=== PATIENT | female | born 1995 | race Caucasian/White ===

== ENCOUNTER 2022-04-09 09:20 | Inpatient (IN) | payer BC, SELFPAY ==
--- NOTE | 2022-04-05 11:19 | HP.PCM_ITS ---
History and Physical Date of Admission: 04/09/22 Pre-Op History and Physical ? HPI: The patient is a 26 year old female presenting for pre-operative visit. She is scheduled for , for BREECH 39+ weeks on 04/09/22. Procedure discussed along with risks, benefits and complications. Other alternatives discussed for management. Consent form signed? Yes. ? ? PAST MEDICAL HISTORY PAST MEDICAL HISTORY Diagnosis Date ? Headache(784.0) 01/25 ? ED headache and vomiting: CT head negative ? Pneumonia, organism unspecified(486) 03/01 ? hospitalized [facility] bilateral infiltrates ? Unspecified asthma, with status asthmaticus ? ? ? PAST SURGICAL HISTORY PAST SURGICAL HISTORY Procedure Laterality Date ? MYRINGOTOMY ASPIR&/EUSTACHIAN TUBE NFLTJ ANES ? ? Myringotomy/tubes ? ? ? CURRENT MEDICATIONS Current Outpatient Medications Medication Sig Dispense Refill ? multivitamin (CLASSIC ) 28 mg iron- 800 mcg tab(s) Take 1 tablet by mouth once daily. ? ? ? albuterol HFA (PROAIR HFA) 90 mcg/actuation inhaler Inhale 2 Puffs as instructed every 4 hours as needed for Wheezing/Shortness of Breath. 3 Inhaler 3 ? No current facility-administered medications for this visit. ? ? ALLERGIES: Ceclor [Cefaclor]; Penicillin G; and Trees, Dust, Mold, Grass, [Other] ? PERSONAL HISTORY: SOCIAL HISTORY Social History ? Tobacco Use ? Smoking status: Never ? Smokeless tobacco: Never Vaping Use ? Vaping Use: Never used Substance Use Topics ? Alcohol use: Not Currently ? ? Comment: Socially ? Drug use: No ? FAMILY HISTORY: FAMILY HISTORY FAMILY HISTORY Problem Relation Age of Onset ? No Known Problems Mother ? ? Hypertension Father ? ? No Known Problems Sister ? ? No Known Problems Brother ? ? No Known Problems Maternal Grandmother ? ? No Known Problems Maternal Grandfather ? ? No Known Problems Paternal Grandmother ? ? Kidney failure Paternal Grandfather ? ? ? REVIEW OF SYMPTOMS: Negative PHYSICAL EXAMINATION: ? VITALS: Blood pressure 116/74, weight 252 lb (114.3 kg), last menstrual period 07/06/2021. ? GENERAL: The patient is well nourished, well hydrated in no acute distress. , The patient is oriented to time, place, and person. NECK: full range of motion ABD: gravid, non tender ? ? IMPRESSION: @ 39+ weeks, BREECH ? PLAN: Primary cs for Breech presentation ? Will attempt ECV prior to C/S if not vertex spontaneously ? Pt has been counseled on risks/benefits and alternatives of surgery including but not limited to anesthesia, bleeding, infection, injury to pelvic structures including bowel, bladder, ureters and vessels. Pt wishes to proceed with surgery at this time. Pt will accept blood products if indicated. ? Pre OP instructions reviewed Covid testing ordered ? I have reviewed and updated past medical and surgical history, medications and allergies Mercedes Dang MD Routine Office Visit on 04/05/2022 Routine Office Visit on 04/05/2022 Note shared with patient
[2022-04-09] VITALS (19 sets, daily range): BP systolic 95–127; BP diastolic 45–93; PULSE 53–74; RESP 15–16; TEMP 35.7–36.6; O2SAT 93–100; BMI 31.6
[2022-04-09] MEDS: Lactated Ringers 1,000 ML 150 ML IV (10:12)
[2022-04-09 10:31] LABS: Absolute Lymphocyte Count 2.61 X10^3/uL (0.83-4.51); Absolute Neutrophil Count 6.6 X10^3/uL (2.0-7.7); Basophil# 0.03 X10^3/uL; Basophil% 0.3 % (0-1); Eosinophil# 0.07 X10^3/uL; Eosinophils% 0.7 % (0-5); Hematocrit 30.3 % (37-47); Hemoglobin 10.3 g/dL (12.0-15.0); Lymphocyte # 2.61 X10^3/ul (0.83-4.51); Lymphocyte % 26.2 % (19-41); Mean Corpuscular Hgb 29.9 pg (27.0-32.0); Mean Corpuscular Volume 87.8 fL (81-99); Monocyte# 0.59 X10^3/uL; Monocyte% 5.9 % (0-10); NRBC Flagged by Analyzer 0 % (0-5); Neutrophil # 6.63 X10^3/uL (2.7-7.7); Neutrophil % 66.4 % (47-70); Platelet Count 163 K/mm3 (150-450); RBC Distribution Width CV 13.3 % (11.6-14.6); RBC Distribution Width SD 42.1 fl (35.1-43.9); Red Blood Count 3.45 M/mm3 (4.2-5.4)
[2022-04-09] MEDS: Acetaminophen 500 MG Tablet 1000 MG PO ×3 (10:49→23:21)
[2022-04-09] MEDS: Sodium Citrate/Citric Acid 30 ML UDC PO (11:46)
[2022-04-09] MEDS: Lactated Ringers 1,000 ML 999 ML IV (11:47)
[2022-04-09] MEDS: Cefazolin 2 GM in 0.9% Normal Saline 100 ML IV (11:51)
--- NOTE | 2022-04-09 12:43 | OP.PCM_ITS ---
Details Operative Information Date of Procedure: 04/09/22 Pre-Operative Diagnosis: 39 weeks, Breech, failed ECV Post-Operative Diagnosis: same, live male infant Indications for : Breech Classification: Scheduled Procedure Type: low transverse occupational medicine specialist #1: Richa Cosby Type of Anesthesia: Spinal Antibiotic Given: Ancef 2 grams IV x1 Drain: Merida to straight drain Estimated Blood Loss: 600 Fluids Replaced: 1000 Procedure Start Time: 12:12 Procedure Stop Time: 12:47 Time of Delivery: 12:18 Findings Description of Procedure: After informed consent was obtained the patient was taken the operating room she was given spinal anesthesia. She was then placed in the supine position. She was prepped and draped in the normal sterile fashion. Anesthesia was found to be adequate. At this time a Pfannenstiel skin incision was made with a knife was carried down to the underlying layer of the fascia. The fascial incision was then extended laterally using curved Hernandez scissor. Attention was then turned to the superior aspect of the fascial edge was grasped with 2 straight Sharda clamps tented up and the rectus muscle dissected off sharply using curved Hernandez scissor. Attention was then turned to the inferior aspect where again [place] clamps were placed in the rectus muscles were tented up and the fascia was dissected off sharply using the curved Hernandez scissor. Rectus muscles were then in the midline bluntly and peritoneum was entered bluntly. Gentle opposing traction was placed. At this time the vesicouterine peritoneum was identified. Scalpel was used to make a uterine incision in a low transverse fashion. The uterus was then entered bluntly gentle opposing traction was placed to extend this incision. Membranes were ruptured clear. Single Footling breech noted. Leg pushed back up and buttocks then delivered followed by the rest of the infants body without complication. delayed cord clamping performed. Nose and mouth were suctioned. Cord was clamped and cut infant was handed to the waiting nursery team. The Placenta was removed from the uterus. The uterus was then removed from the abdominal cavity. The uterus was cleared of all clots and debris using a lap. At this time the uterine incision was reapproximated using #1 Vicryl in a running locked fashion followed by a second layer of multiple figure of eight sutures placed. Hemostasis was appreciated. Posterior cul-de-sac was then cleared of all clots and debris. Uterus was placed back in the abdominal cavity. Gutters were cleared of all clots and debris. Uterine incision was reevaluated and noted to be of excellent hemostasis. Yasmine placed. At this time the peritoneum was grasped with Kellys reapproximated using #2 Vicryl suture in a running fashion. Fascia was then reapproximated using #1 Vicryl in a running fashion. Subcu layer was reapproximated with #2 0 plain gut suture in an interrupted fashion. Subcu layer was closed using 4-0 Monocryl in a subcu fashion. Dry sterile dressing was applied. Instrument lap needle count correct ?2. Anticipated normal postoperative course. Presentation: Positive for Footling Breech (single ) Amniotic Membrane Rupture Type: Artificial Amniotic Fluid Description: Clear Placental Delivery Description: Spontaneous Placenta Disposition: [facility] Cord Vessel Description: 3 Vessels Cord Entanglement: None Cord Gases: ABG and VBG Infant A Gender: Male (1 minute): 8 (5 minute): 9 Delayed Cord Clamping: Yes Complications Risks of Surgery Discussed w/Patient: Bleeding, Anesthesia Risks, Infection and Injury to surrounding structure(s) including bowel and bladder
[2022-04-09] MEDS: Oxytocin 30 units/NS 500 ml 30 UNITS/500 ML IV.SOLN 167 UNITS IV (13:00)
[2022-04-09] MEDS: Ketorolac 30 MG/ML Syringe IV ×2 (13:26→19:18)
--- NOTE | 2022-04-09 14:08 | PCM.PN.BLA ---
Progress Note attempted ECV prior to cs. Pt had reactive category 1 tracing- head in maternal Left- gel applied to maternal abdomen. RACHELL appears wnl. abdomen soft. Gentle pressure downward on head and up on buttocks attempted three times- with minimal movement. one attempt at back roll as well but unsuccessful. FHR was see on ultrasound during attempted ECV. once unsuccessful we proceeded with planned primary cs.
--- NOTE | 2022-04-09 15:54 | NURSING ---
student charting reviewed by Alanna CHAVIRA instructor
[2022-04-09] MEDS: Lactated Ringers 1,000 ML 100 ML IV (16:12)
[2022-04-09] MEDS: Ondansetron 4 MG/2 ML Vial IV (16:12)
[2022-04-10 01:19] VITALS: BP 101/53; PULSE 62; RESP 15; TEMP 36.3
[2022-04-10] MEDS: Ketorolac 30 MG/ML Syringe IV ×2 (01:22→07:22)
[2022-04-10] MEDS: 0.9% Saline Lock 10 ML Syringe IV ×2 (01:22→07:23)
[2022-04-10 05:23] VITALS: BP 117/61; PULSE 74; RESP 18; TEMP 36.6; O2SAT 97
[2022-04-10] MEDS: Acetaminophen 500 MG Tablet 1000 MG PO ×4 (05:26→23:27)
--- NOTE | 2022-04-10 05:33 | NURSING ---
All charting done by Andrews, RN reviewed by Abby RN
[2022-04-10 05:49] LABS: Hematocrit 25.3 % (37-47); Hemoglobin 8.1 g/dL (12.0-15.0); Mean Corpuscular Hgb 28.4 pg (27.0-32.0); Mean Corpuscular Volume 88.8 fL (81-99); Mean Platelet Vol. 10.7 fl (6.2-12.0); Platelet Count 122 K/mm3 (150-450); RBC Distribution Width CV 13.6 % (11.6-14.6); RBC Distribution Width SD 44.1 fl (35.1-43.9); Red Blood Count 2.85 M/mm3 (4.2-5.4); White Blood Count 9.3 K/mm3 (4.4-11.0)
[2022-04-10 07:44] VITALS: BP 117/68; PULSE 80; RESP 16; TEMP 37.1; O2SAT 97
--- NOTE | 2022-04-10 08:28 | PN.OBGYN_ITS ---
Subjective Subjective Patient seen at bedside. Pain controlled. Ambulating and voiding without difficulty. with support. Lochia is minimal. Denies any headache, dizziness, SOB or CP. Anticipate discharge home tomorrow. Objective Data Objective Data Vital Signs: Vital Signs Temp Pulse Resp BP Pulse Ox O2 Del Method 97.9 F 74 18 117/61 97 Room Air 04/10/22 05:23 04/10/22 05:23 04/10/22 05:23 04/10/22 05:23 04/10/22 05:23 04/10/22 05:23 Oxygen Delivery Method Room Air Weight: 253 lb 8.505 oz Body Mass Index (BMI) 31.6 Intake & Output: Intake and Output for Last 24 Hours 04/08/22 04/09/22 04/10/22 23:59 23:59 23:59 Intake Total 2809 / 2809 Output Total 700 / 700 1700 / 1700 Balance 2109 / 2109 -1700 / -1700 Lab / Micro Data Result Diagrams: 04/10/22 05:40 Labs: Laboratory Results - last 24 hr 04/09/22 10:10: WBC 10.0, RBC 3.45 L, Hgb 10.3 L, Hct 30.3 L, MCV 87.8, MCH 29.9, MCHC 34.0, RDW Std Deviation 42.1, RDW Coeff of Luis 13.3, Plt Count 163, MPV 12.0, Immature Gran % (Auto) 0.500, Neut % (Auto) 66.4, Lymph % (Auto) 26.2, Prowers % (Auto) 5.9, Eos % (Auto) 0.7, Baso % (Auto) 0.3, Absolute Neuts (auto) 6.6, Absolute Lymphs (auto) 2.61, Nucleated RBC % 0 04/09/22 10:10: Blood Type AB NEGATIVE, Antibody Screen NEGATIVE 04/09/22 14:58: Screen NEGATIVE, Baby's Blood Type A POSITIVE, Baby's JEREMY NEGATIVE 04/10/22 05:40: WBC 9.3, RBC 2.85 L, Hgb 8.1 L, Hct 25.3 L, MCV 88.8, MCH 28.4, MCHC 32.0 D, RDW Std Deviation 44.1 H, RDW Coeff of Luis 13.6, Plt Count 122 L, MPV 10.7 Micro: Microbiology 04/09/22 10:10 Nasal Secretion SARS-CoV-2 Antigen (Rapid) - Final ROS Eyes Eyes: Denies blurry vision, change in vision or spots in vision ENT HEENT: Denies dizziness or headache(s) Cardiovascular Cardiovascular: Denies abdominal pain, chest pain or dyspnea Respiratory/Chest Respiratory/Chest: Denies cough, dyspnea, shortness of breath at rest or short ness of breath with exertion Gastrointestinal Gastrointestinal: Denies abdominal pain, diarrhea or vomiting Genitourinary Genitourinary: Denies change in urinary stream, difficulty urinating or dysuria Musculoskeletal Musculoskeletal: Reports none Integumentary Integumentary: Denies rash Neurologic Neurologic: Denies dizziness, headache(s), memory loss or weakness Physical Exam Narrative Dressing is dry and intact Const alert and no apparent distress General Appearance: cooperative and comfortable Exam Limitations: no limitations HEENT normocephalic Eyes General Eye: normal appearance of both eyes Neck full ROM General: normal visual inspection Chest Chest: symmetrical chest wall rise Resp normal respiratory effort and normal air movement Effort and Inspection: symmetric chest movement Auscultation: clear to auscultation bilaterally Cardio regular rate and regular rhythm GI normal to inspection, nondistended, normoactive bowel sounds Back/Spine normal ROM Extremity full ROM and no calf tenderness General Extremity: normal exam except as noted Skin no rashes or lesions noted Neuro CN's II-XII intact bilaterally Psych mental status grossly normal Assessment & Plan (1) Status post primary low transverse section: (2) Care and examination of lactating mother: PLAN: Plan PO Day 1 Primary C/S breech Routine care Pain control support Increase ambulation Anticipate discharge home tomorrow
[2022-04-10] MEDS: Senna/Docusate Sodium 1 Tablet PO (09:55)
[2022-04-10 11:39] VITALS: BP 124/73; PULSE 79; RESP 16; TEMP 37.1; O2SAT 97
[2022-04-10] MEDS: Ibuprofen 600 MG Tablet PO ×2 (13:27→19:24)
[2022-04-10 16:29] VITALS: BP 121/68; PULSE 82; RESP 18; TEMP 36.7; O2SAT 94
[2022-04-10 20:38] VITALS: BP 124/76; PULSE 81; RESP 17; TEMP 36.6; O2SAT 97
[2022-04-11] MEDS: Ibuprofen 600 MG Tablet PO ×4 (01:20→19:04)
[2022-04-11 02:00] VITALS: BP 119/69; PULSE 75; RESP 16; TEMP 37.1; O2SAT 98
[2022-04-11] MEDS: Acetaminophen 500 MG Tablet 1000 MG PO ×4 (05:14→23:14)
--- NOTE | 2022-04-11 06:40 | PCM.DC.SUM ---
Providers Date of Admission: 04/09/22 Reason For Visit: PRIMARY C SECTION Diagnosis Discharge Diagnosis (1) Status post primary low transverse section: Status: Acute Code(s): Z98.891 - History of uterine scar from previous surgery (2) Care and examination of lactating mother: Status: Acute Code(s): Z39.1 - Encounter for care and examination of lactating mother Plan PO Day 2 Primary C/S Pain control support D/C home with follow up in office in 1 week Medications at Discharge Home Medications [id number] 1 mg tablet tab PO 04/09/22 Hospital Course Operations section Summary of Care Provided Hospital Course: Patient for a primary section. Hospital course was uneventful. Physical Exam Narrative Patient seen at bedside. Starting to supplement with formula due to infant having difficulty latching. She will be seen by today. Pain controlled. Ambulating and voiding. Passing flatus. Desires discharge home later tonight if feedings improve. Dressing is dry and intact Const alert and no apparent distress General Appearance: cooperative and comfortable Exam Limitations: no limitations HEENT normocephalic Eyes General Eye: normal appearance of both eyes Neck full ROM General: normal visual inspection Chest Chest: symmetrical chest wall rise Resp normal respiratory effort and normal air movement Effort and Inspection: symmetric chest movement Auscultation: clear to auscultation bilaterally Cardio regular rate and regular rhythm GI normal to inspection, nondistended, normoactive bowel sounds Back/Spine normal ROM Extremity full ROM and no calf tenderness General Extremity: normal exam except as noted Skin no rashes or lesions noted Neuro CN's II-XII intact bilaterally Psych mental status grossly normal Weight / BMI Weight Weight: 253 lb 8.505 oz Body Mass Index (BMI) 31.6 ABG / Lab / Microbiology Data Result Diagrams: 04/10/22 05:40 Microbiology: Microbiology 04/09/22 10:10 Nasal Secretion SARS-CoV-2 Antigen (Rapid) - Final D/C Instructions Discharge Diet: No restrictions Discharge Activity: May Shower May resume sexual activity in: 6-8 weeks Weight Bearing Status: Weight bearing as tolerated Call your doctor if your incision/area has: Continuous Slow Oozing, Sudden Increased Bleeding, Increased Pain/ Swelling and Foul Smelling Discharge Call your doctor if you observe: Fever of 101 or Higher, Inability to urinate, Inability to have a bowel movement, Using more than 1 pad per hour, Shortness of breath, Dizziness, Chest pain, Calf discomfort and Uncontrolled pain Change Dressing in: leave in place till F/U Please Follow Up With: Mercedes Awad MD When: 1 week for incision check Meaningful Use Info Meaningful Use Diagnoses (Choose all that apply): None applicable Discharge Plan Admission Admit Date/Time: 04/09/22 09:20 Primary Reason for Your Visit: Primary Section Attending Provider: Mercedes Awad Discharge Orders/Prescriptions Prescriptions: No Action 1 mg Tablet PO Disposition Disposition (needs filled in before D/C Order can be placed): Home, Self Care
[2022-04-11 08:46] VITALS: BP 109/82; PULSE 68; RESP 16; TEMP 36.6
[2022-04-11] MEDS: Senna/Docusate Sodium 1 Tablet PO (10:49)
[2022-04-11 13:08] VITALS: BP 121/68; PULSE 83; RESP 16; TEMP 36.8
[2022-04-11 19:51] VITALS: BP 143/85; PULSE 71; RESP 16; TEMP 36.4; O2SAT 95
[2022-04-12] MEDS: Ibuprofen 600 MG Tablet PO ×2 (01:04→06:24)
[2022-04-12 01:08] VITALS: BP 133/76; PULSE 78; RESP 16; TEMP 37; O2SAT 98
[2022-04-12] MEDS: Acetaminophen 500 MG Tablet 1000 MG PO ×2 (04:47→11:21)
[2022-04-12 06:24] VITALS: BP 133/79
[2022-04-12 07:20] VITALS: BP 138/80; PULSE 74; RESP 16; TEMP 36.8; O2SAT 100
--- NOTE | 2022-04-12 08:20 | PCM.PROGNOTE ---
Subjective Subjective patient seen at bedside, doing well. Patient reports good pain control. lochia mild. passing flatus, +BM, + voiding w/o difficulty. Objective Data Objective Data Vital Signs: Vital Signs Temp Pulse Resp BP Pulse Ox O2 Del Method 98.2 F 74 16 138/80 H 100 Room Air 04/12/22 07:20 04/12/22 07:20 04/12/22 07:20 04/12/22 07:20 04/12/22 07:20 04/12/22 07:34 Oxygen Delivery Method Room Air Weight: 115 kg Body Mass Index (BMI) 31.6 Intake & Output: Intake and Output for Last 24 Hours 04/10/22 04/11/22 04/12/22 23:59 23:59 23:59 Output Total 1700 / 1700 Balance -1700 / -1700 Lab / Micro Data Result Diagrams: 04/10/22 05:40 Micro: Microbiology 04/09/22 10:10 Nasal Secretion SARS-CoV-2 Antigen (Rapid) - Final Physical Exam Const alert and oriented x3 General Appearance: cooperative HEENT normocephalic Neck General: normal visual inspection GI soft to palpation and non-distended GI Narrative: Fundus firm Extremity normal to inspection and no calf tenderness Skin no rashes or lesions noted Neuro oriented x3 and CN's II-XII intact bilaterally Psych mental status grossly normal Assessment & Plan Assessment/Plan (1) Status post primary low transverse section: (2) Care and examination of lactating mother: (3) Acute on chronic blood loss anemia: PLAN: Plan POD#3 , Doing well Routine care pain mgmt monitor VS ambulation iron supplement
--- NOTE | 2022-04-12 08:22 | DCINST_ITS ---
Discharge Instructions Procedure Diet Discharge Diet: No restrictions Activity May resume sexual activity in: 6-8 weeks Weight Bearing Status: Weight bearing as tolerated Lifting Restrictions: 25 Dressing / Incision Call your doctor if your incision/area has: Continuous Slow Oozing, Sudden Increased Bleeding, Increased Pain/ Swelling and Foul Smelling Discharge Call your doctor if you observe: Fever of 101 or Higher, Inability to urinate, Inability to have a bowel movement, Using more than 1 pad per hour, Shortness of breath, Dizziness, Chest pain, Calf discomfort and Uncontrolled pain Additional Dressing/Incision Instructions:: remove dressing at 7 days post op- if it becomes saturated prior to that time you may remove it. Let soap and water run over incision sites and dab dry. keep incision clean and dry. Follow Up Care Please Follow Up With: Mercedes Awad MD When: 1-2 weeks post of incision check and again at 6 weeks post . [phone] Test Results: Test results from this visit will be discussed in further detail at your follow- up appointment, if applicable. Discharge Plan Admission Admit Date/Time: 04/09/22 09:20 Primary Reason for Your Visit: Primary Section Attending Provider: Mercedes Awad Discharge Orders/Prescriptions Prescriptions: New acetaminophen 500 mg Tablet 1,000 mg PO Q6H Qty: 0 0RF ferrous sulfate [FeroSul] 325 mg (65 mg iron) Tablet 325 mg PO 1200,1700 Qty: 0 0RF ibuprofen 600 mg Tablet 600 mg PO Q6H Qty: 0 0RF simethicone [Gas Relief (simethicone)] 80 mg Tablet,Chewable 80 mg PO PCHS PRN (Reason: Indigestion/stomach pain) Qty: 0 0RF Continued [id number] 1 mg Tablet PO Disposition Disposition (needs filled in before D/C Order can be placed): Home, Self Care
[2022-04-12] MEDS: Senna/Docusate Sodium 1 Tablet PO (11:20)
[2022-04-12 11:36] VITALS: BP 142/74; PULSE 65; RESP 16; TEMP 36.5; O2SAT 99
== END 2022-04-12 12:30 | disposition home or self-care (01) | DRG 787 ==
PROVIDERS: Admitting Provider Obstetrics & Gynecology; Visit Provider Obstetrics & Gynecology
PROC: 10D00Z1 Extraction of Products of Conception, Low, Open Approach (ICD-10-PCS; CPT 59514; principal; 2022-04-09 11:45)
DX: O32.8XX0 Maternal care for other malpresentation of fetus, not applicable or unspecified (principal); D62 Acute posthemorrhagic anemia; O99.02 Anemia complicating childbirth; Z79.899 Other long term (current) drug therapy; Z37.0 Single live birth; Z3A.39 39 weeks gestation of pregnancy; Z20.822 Contact with and (suspected) exposure to COVID-19
CPT/HCPCS: 59025; 59050; 76815; 85025; 85027; 85461; 86850; 86900; 86901; 87426; 90384; 99218; J7120; A4216; G0378; J2405; J2790

== ENCOUNTER 2024-06-17 05:05 | Inpatient (IN) | payer OTHER, SELFPAY ==
--- NOTE | 2024-06-07 11:53 | HP.PCM.OB_ITS ---
History and Physical Date of Admission: 06/17/24 Expand All Collapse All Pre-Op History and Physical HPI: The patient is a 29 year old female presenting for pre-operative visit. She is scheduled for and Salpingectomy, for repeat cs and desires sterilization on 06/17/24. Procedure discussed along with risks, benefits and complications. Other alternatives discussed for management. Consent form signed? Yes. PAST MEDICAL HISTORY PAST MEDICAL HISTORY Diagnosis Date ? Anemia complicating , third trimester 04/05/2024 ? Headache(784.0) 01/2001 ED headache and vomiting: CT head negative ? Injury of right Achilles tendon 11/14/2020 ? Pain in right foot 11/14/2020 ? Pelvic floor tension 08/29/2023 ? Pneumonia, organism unspecified(486) 02/2005 hospitalized [facility] bilateral infiltrates ? Sprain of anterior talofibular ligament of right ankle 11/14/2020 ? Sprain of right foot 11/14/2020 ? Unspecified asthma, with status asthmaticus PAST SURGICAL HISTORY PAST SURGICAL HISTORY Procedure Laterality Date ? DELIVERY ONLY 04/09/2022 LTCS ? MYRINGOTOMY ASPIR&/EUSTACHIAN TUBE NFLTJ ANES 09/26/1995 Myringotomy/tubes CURRENT MEDICATIONS Current Outpatient Medications Medication Sig Dispense Refill ? ferrous sulfate (FEOSOL) 325 mg (65 mg iron) tablet Take 325 mg by mouth every other day. ? aspirin, enteric coated (ASPIRIN, ENTERIC COATED) 81 mg EC tablet Take 81 mg by mouth once daily. ? multivitamin (CLASSIC ) 28 mg iron- 800 mcg tab(s) Take 1 tablet by mouth once daily. ? albuterol HFA (PROAIR HFA) 90 mcg/actuation inhaler Inhale 2 Puffs as instructed every 4 hours as needed for Wheezing/Shortness of Breath. 3 Inhaler 3 No current facility-administered medications for this visit. ALLERGIES: Ceclor [Cefaclor], Penicillin G, and Tree And Shrub Pollen PERSONAL HISTORY: SOCIAL HISTORY Social History Tobacco Use ? Smoking status: Never ? Smokeless tobacco: Never Vaping Use ? Vaping status: Never Used Substance Use Topics ? Alcohol use: Not Currently Comment: Socially ? Drug use: No FAMILY HISTORY: FAMILY HISTORY FAMILY HISTORY Problem Relation Age of Onset ? No Known Problems Mother ? Hypertension Father ? No Known Problems Sister ? No Known Problems Brother ? No Known Problems Maternal Grandmother ? No Known Problems Maternal Grandfather ? No Known Problems Paternal Grandmother ? Kidney failure Paternal Grandfather REVIEW OF SYMPTOMS: negative except as noted above PHYSICAL EXAMINATION: VITALS: Blood pressure 126/78, weight 113.4 kg (250 lb), last menstrual period 09/17/2023. GENERAL: The patient is well nourished, well hydrated in no acute distress. , The patient is oriented to time, place, and person. NECK: full range of motion Abdomen:soft, non tender IMPRESSION: 29yo @ 37.5 weeks- repeat cs and desires sterilization PLAN: repeat cs @ 39 weeks and Bilateral salpingectomy Pt has been counseled on risks/benefits and alternatives of surgery including but not limited to anesthesia, bleeding, infection, injury to pelvic structures including bowel, bladder, ureters and vessels. Pt wishes to proceed with surgery at this time. Pre op instructions reviewed. I have reviewed and updated past medical and surgical history, medications and allergies Mercedes Dang MD Routine Office Visit on 06/07/2024 Note shared with patient Additional Documentation Vitals: BP 126/78 Wt 113.4 kg (250 lb) LMP 09/17/2023 (Exact Date) BMI 31.25 kg/m? BSA 2.45 m? Flowsheets: [facility] PDMP [employer] SCORES, Vitals, Vital Signs Encounter Info: Billing Info, History, Allergies, Detailed Report
[2024-06-17] VITALS (20 sets, daily range): BP systolic 96–123; BP diastolic 57–89; PULSE 55–95; RESP 11–20; TEMP 35.7–36.6; O2SAT 93–99; BMI 31.4
--- NOTE | 2024-06-17 | FALS_PTH ---
PATIENT: ROSANA WHITE LOC: [facility] U#:[id number] AGE/SX: 29/F [facility]: Dr. Mercedes Awad, MDDOB: 1995 BED: 1 DIS: 06/18/2024 SPEC #: [id number] RECD: 06/17/24 10:18 STATUS: SHANTAL SANDRA #: [id number] JANUARY: 06/17/24 00:[address]: Mercedes Awad DEPT: SURGICAL PATHOLOGY RECD BY: Dequan Molina ENTERED: 06/17/24 10:18 SP TYPE: FALL TUBES OT DR: No Primary Care Phys Tissues: Fallopian tube Procedures: Surgery Specimen Level II HEADER OPERATION: Repeat section PRE-OP DIAGNOSIS: Sterilization TISSUE SUBMITTED: Bilateral fallopian tubes - suture in right tube MICROSCOPIC DIAGNOSIS Bilateral fallopian tubes, salpingectomy: Bilateral fallopian tubes, no pathologic diagnosis. : 06/18/2024 MICROSCOPIC DESCRIPTION Slides are reviewed. GROSS DESCRIPTION Received in fixative is one container labeled with the patient's name and designated bilateral fallopian tubes- stitch on right. The specimen consists of bilateral fallopian tubes including fimbrial ends. Right fallopian tube measures 9.0cm in length and 1.0cm in diameter and left fallopian tube measures 7.5 cm in length and 0.6 cm in diameter. Sections reveal unremarkable cut surfaces. Consultant Intern sections are submitted in two cassettes: 1- right fallopian tube, 2- left fallopian tube. / SJ: 06/17/2024 TC:4 CPT: 48852 x2
[2024-06-17] MEDS: Lactated Ringers 1,000 ML 999 ML IV (05:45)
[2024-06-17 06:01] LABS: Absolute Lymphocyte Count 3.28 X10^3/uL (0.83-4.51); Absolute Neutrophil Count 6.3 X10^3/uL (2.0-7.7); Basophil# 0.03 X10^3/uL; Basophil% 0.3 % (0-1); Eosinophil# 0.26 X10^3/uL; Eosinophils% 2.5 % (0-5); Hematocrit 29.9 % (37-47); Hemoglobin 9.9 g/dL (12.0-15.0); Lymphocyte # 3.28 X10^3/ul (0.83-4.51); Lymphocyte % 31.3 % (19-41); Mean Corp Hgb Conc 33.1 g/dL (32-36); Mean Corpuscular Hgb 28.9 pg (27.0-32.0); Mean Corpuscular Volume 87.4 fL (81-99); Mean Platelet Vol. 11.6 fl (6.2-12.0); Monocyte# 0.54 X10^3/uL; Monocyte% 5.2 % (0-10); NRBC Flagged by Analyzer 0 % (0-5); Neutrophil # 6.32 X10^3/uL (2.7-7.7); Neutrophil % 60.3 % (47-70); Platelet Count 159 K/mm3 (150-450); RBC Distribution Width CV 14.1 % (11.6-14.6); RBC Distribution Width SD 44.1 fl (35.1-43.9); Red Blood Count 3.42 M/mm3 (4.2-5.4); White Blood Count 10.5 K/mm3 (4.4-11.0)
[2024-06-17] MEDS: Acetaminophen 500 MG Tablet 1000 MG PO ×3 (06:08→22:01)
[2024-06-17] MEDS: Sodium Citrate/Citric Acid 30 ML UDC PO (07:12)
[2024-06-17] MEDS: Cefazolin 2 GM in Syringe IV (07:23)
--- NOTE | 2024-06-17 08:29 | EX.PCM.OBRPT ---
Operative Report (OB) Cecarean Details Procedure Type: low transverse (with Bilateral salpingectomy ) Surgeon: Mercedes Awad Date of Procedure: 06/17/24 Procedure Start Time: 07:40 Procedure Stop Time: 08:30 Time of Delivery: 07:43 Pre-Operative Diagnosis: Repeat Elective and Desires elective sterilization Post-Operative Diagnosis: Same as Pre-operative diagnosis Classification: Scheduled Type of Anesthesia: Spinal Antibiotic Given: Ancef 2 grams IV x1 Drain: Merida to straight drain Estimated Blood Loss: 600 Fluids Replaced: 750cc Findings Description of surgery: After informed consent was obtained the patient was taken to the operating room she was given spinal anesthesia. He was placed in the supine position. She was then prepped and draped in normal sterile fashion. Once spinal anesthesia was found to be adequate skin incision was made with a scalpel in a Pfannenstiel fashion. It was carried down to the underlying layer of the fascia. Fascia was then incised midline with scapel and extended laterally using traction. 2 straight Sharda's were placed in the superior aspect of the fascial edge and the rectus muscles were dissected off sharply. Attention was then turned to the inferior aspect where again the fascial edge was grasped with 2 straight Sharda clamps tented up and the rectus muscle dissected off bluntly. At this time the rectus muscles were bluntly and peritoneum was entered bluntly. At this time the vesicouterine peritoneum was identified. Uterine incision was made in a low transverse fashion with the scalpel and then entered bluntly. Gentle opposing traction was placed to extend the uterine incision. The membranes were ruptured amniotic fluid clear. Infant's head was then brought to the uterine incision was delivered atraumatically followed by the rest infant's body. At this time delayed cord clamping was performed mouth nose were suctioned. was then handed to the waiting nursery team. The placenta was then removed with gentle traction. The uterus was removed from the intra-abdominal cavity is wrapped in a moist lap. It was cleared of all clots and debris using a moist lap. Ring clamps were placed on the uterine angles. #1 Vicryl suture was used in a running locked fashion for the first layer. Followed by second layer for hemostasis. Tubes and ovaries were evaluated they were normal. The tubes were grasped in an avascular area with the Emerita-LigaSure was used to coagulate and ligate along the mesosalpinx to remove the tube completely. This was repeated on both sides. The uterus was placed back in the intra-abdominal cavity. Posterior cul-de-sac was cleared of clots and debris. Great hemostasis was appreciated at this time the uterine incision was again evaluated good hemostasis was appreciated. Hemoblast was placed over the uterine incision. The peritoneum was grasped with Kellys. Peritoneum was reapproximated using #2 Vicryl suture in a running fashion. Muscle was then reapproximated using #2 Vicryl in an interrupted mattress suture fashion. Hemoblast was placed over the rectus muscle. The fascia was then reapproximated using #1 Vicryl in a running fashion. Subcutaneous layer was irrigated. Bovie used to coagulate any oozing. Subcutaneous layer was evaluated and #2-0 plain gut suture was then used to reapproximate the subcutaneous layer 4-0 Vicryl on a Emil needle was used to reapproximate the skin in a subcutaneous fashion. Dry sterile dressing was applied. Instrument lap needle count were correct ?2. Anticipated normal postoperative course for this patient. Surgical findings: normal tubes and ovaries. Presentation: Vertex Amniotic Membrane Rupture Type: Artificial Amniotic Fluid Description: Clear Placental Delivery Description: Expressed Placenta Disposition: [facility] Specimen collected: Yes Description of specimen(s) removed: bilateral fallopian tubes Cord Vessel Description: 3 Vessels Cord Entanglement: None Nuchal Cord Compression: Without compression A gender: Female (1 minute): 8 (5 minute): 10 Delayed Cord Clamping: Yes Apprentice windows migration technician: Yes Drafter Marine: Dixie Thomas Tasks completed by investigative assistant: Opening & closing and Retracting Additional wet process miller head assistant?: Yes Additional Lead Recoverer #2: Karmen Chávez Tasks completed by wet process miller head assistant #2: Opening & closing and Retracting Additional wet process miller head assistant?: No Complications Complications: No Admit VTE Documentation VTE Present on Admission: Yes VTE Mechan Device Prophylaxis: SCD's VTE Pharm Prophylaxis Ordered: No Reason Prophylaxis Not Ordered: Procedure Not Indicated
[2024-06-17] MEDS: Oxytocin 15 Units/NS 250ml 15 UNITS/250 ML IV.SOLN 83 UNITS IV (08:40)
[2024-06-17 08:42] LABS: Syphilis Antibodies Non-reactive
[2024-06-17] MEDS: 0.9% Saline Lock 10 ML Syringe IV (09:02)
[2024-06-17] MEDS: Ketorolac 30 MG/ML Syringe IV ×3 (09:02→23:10)
[2024-06-17 09:25] LABS: Pathology Specimen OB SEE PATHOLOGY REPORT
[2024-06-17] MEDS: Rho(D) Immune Globulin 300 MCG (1500 Unit) Syringe IV (11:35)
[2024-06-17] MEDS: Lactated Ringers 1,000 ML 100 ML IV (13:00)
[2024-06-17] MEDS: Ondansetron 4 MG/2 ML Vial IV (13:22)
[2024-06-18] VITALS: BP 121/72; PULSE 74; RESP 16; TEMP 36.5; O2SAT 97
[2024-06-18 04:00] VITALS: BP 120/84; PULSE 84; RESP 16; TEMP 36.6; O2SAT 97
[2024-06-18] MEDS: Acetaminophen 500 MG Tablet 1000 MG PO ×2 (04:04→11:09)
[2024-06-18] MEDS: Ketorolac 30 MG/ML Syringe IV (05:29)
--- NOTE | 2024-06-18 06:22 | PCM.PN.OB ---
Subjective Subjective Doing well. Ambulating and voiding without difficulty. Mild lochia. Breast feeding. Objective Data Objective Data Vital Signs: Vital Signs Temp Pulse Resp BP Pulse Ox O2 Del Method 97.9 F 84 16 120/84 H 97 Room Air 06/18/24 04:00 06/18/24 04:00 06/18/24 04:00 06/18/24 04:00 06/18/24 04:00 06/18/24 04:00 Oxygen Delivery Method Room Air Weight: 114.124 kg Body Mass Index (BMI) 31.4 Intake & Output: Intake and Output for Last 24 Hours 06/16/24 06/17/24 06/18/24 23:59 23:59 23:59 Intake Total 1700 / 1700 Output Total 1200 / 1200 600 / 600 Balance 500 / 500 -600 / -600 Lab / Micro Data 06/18/24 05:48 Labs: Laboratory Results - last 24 hr 06/17/24 05:45: Syphilis Total Ab Non-reactive, Blood Type AB NEGATIVE, Antibody Screen NEGATIVE 06/17/24 10:30: Screen NEGATIVE, Baby's Blood Type AB POSITIVE, Baby's JEREMY NEGATIVE ROS Constitutional Constitutional: Denies fatigue, fever(s) or malaise Eyes Eyes: Denies change in vision ENT HEENT: Denies dizziness or headache(s) Cardiovascular Cardiovascular: Denies chest pain, dyspnea or lightheadedness Respiratory/Chest Respiratory/Chest: Denies cough or dyspnea Gastrointestinal Gastrointestinal: Denies change in bowel habits Genitourinary Genitourinary: Denies burning urination or genital lesions Integumentary Integumentary: Denies rash Neurologic Neurologic: Denies confusion, dizziness, headache(s), numbness or weakness Physical Exam Const alert General Appearance: cooperative GI GI Narrative: soft, moderate distention, fundus firm, appropriately tender. Abdominal bandage dry and intact. 3 cm area of blood on right side of bandage. Not expanding. Assessment & Plan (1) Request for sterilization: (2) S/P repeat low transverse : PLAN: Plan Discharge home
[2024-06-18 06:25] LABS: Hematocrit 25.4 % (37-47); Hemoglobin 8.2 g/dL (12.0-15.0); Mean Corp Hgb Conc 32.3 g/dL (32-36); Mean Corpuscular Hgb 28.7 pg (27.0-32.0); Mean Corpuscular Volume 88.8 fL (81-99); Mean Platelet Vol. 11.6 fl (6.2-12.0); Platelet Count 127 K/mm3 (150-450); RBC Distribution Width CV 14.2 % (11.6-14.6); RBC Distribution Width SD 45.7 fl (35.1-43.9); Red Blood Count 2.86 M/mm3 (4.2-5.4); White Blood Count 9.7 K/mm3 (4.4-11.0)
--- NOTE | 2024-06-18 06:59 | PCM.DC.SUM ---
Providers Date of Admission: 06/17/24 Date of Discharge: 06/18/24 Primary Care Physician: No Primary Care Phys Reason For Visit: SCHEDULED C SECTION / C SECTION DELIVERY Diagnosis Discharge Diagnosis (1) Request for sterilization: Status: Acute Code(s): Z30.2 - Encounter for sterilization (2) S/P repeat low transverse : Status: Acute Code(s): Z98.891 - History of uterine scar from previous surgery Plan Discharge home Medications at Discharge Home Medications acetaminophen 500 mg tablet 1,000 mg (2 x 500 mg) PO Q6H pain #0 tabs 04/12/22 albuterol sulfate 90 mcg/actuation aerosol inhaler 2 inh inhalation Q4H PRN asthma 06/17/24 ferrous sulfate 325 mg (65 mg iron) tablet (FeroSul) 325 mg PO Q2D anemia 06/17/24 Hospital Course Operations section (with tubal) Summary of Care Provided Minutes Spent on Discharge: 20 Hospital Course: Scheduled repeat with tubal. No complication . Breast feeding. Physical Exam Const alert General Appearance: cooperative GI GI Narrative: soft, moderate distention, fundus firm, appropriately tender. Abdominal bandage clean dry and intact Weight / BMI Weight Weight: 114.124 kg Body Mass Index (BMI) 31.4 ABG / Lab / Microbiology Data 06/18/24 05:48 Laboratory: Laboratory Results - last 24 hr 06/17/24 05:45: Syphilis Total Ab Non-reactive, Blood Type AB NEGATIVE, Antibody Screen NEGATIVE 06/17/24 10:30: Screen NEGATIVE, Baby's Blood Type AB POSITIVE, Baby's JEREMY NEGATIVE 06/18/24 05:48: WBC 9.7, RBC 2.86 L, Hgb 8.2 L, Hct 25.4 L, MCV 88.8, MCH 28.7, MCHC 32.3, RDW Std Deviation 45.7 H, RDW Coeff of Luis 14.2, Plt Count 127 L, MPV 11.6 D/C Instructions Discharge Diet: No restrictions May resume sexual activity in: 4-6 weeks Lifting Restrictions: 20 pounds Additional Activity Instructions: Nothing in the vagina for 4-6 weeks. You may return to work/school in 6 weeks. Call your doctor if your incision/area has: Continuous Slow Oozing, Sudden Increased Bleeding, Increased Pain/ Swelling, Increased Redness and Foul Smelling Discharge Call your doctor if you observe: Fever of 101 or Higher and Using more than 1 pad per hour (for 2 hours) Suture Line Care: Avoid Pulling/Pushing and Avoid Pinching/Bending Cleanse incision/area with: Keep Dressing Clean & Dry DC O2, CPAP, BIPAP Needs Additional Home O2 Discharge instructions: No DC home with Oxygen: No Please Follow Up With: Ada Sandoval MD When: Call to make an appointment for an incision check in 1-2 [phone]. You will need a post check in 6 weeks. Meaningful Use Info Meaningful Use Meaningful Use Diagnoses (Choose all that apply): None applicable Ischemic Stroke Statin Dosing Therapy Reference: STATIN DOSE THERAPY REFERENCE: * Patients > 75 years receive moderate or high dose statin therapy. * Patients 75 years or YOUNGER should receive HIGH intensity statin dose unless contraindicated. You will be required to document reason for non-treatment if statin daily dose does not meet guidelines. HIGH DOSE STATIN THERAPY DAILY Atorvastatin > than or = to 40 mg Rosuvastatin > than or = to 20 mg Amlodipine + Atorvastatin > than or = to 2.5/40 mg Ezetimibe + Simvastatin 10/80 mg Simvastatin 80mg Discharge Plan Admission Admit Date/Time: 06/17/24 05:05 Primary Reason for Your Visit: delivery Attending Provider: Mercedes Awad Primary Care Provider: Stefanie Wilson Primary Discharge Orders/Prescriptions Prescriptions: Continued acetaminophen 500 mg Tablet 1,000 mg PO Q6H Qty: 0 0RF albuterol sulfate 90 mcg/actuation HFA aerosol inhaler 2 inh inhalation Q4H PRN (Reason: asthma) ferrous sulfate [FeroSul] 325 mg (65 mg iron) Tablet 325 mg PO Q2D Discontinued [id number] 1 mg Tablet 1 tab PO DAILY Referrals / Follow Up: Care Physician,No Primary [Primary Care Provider] - Disposition Disposition (needs filled in before D/C Order can be placed): Home, Self Care
[2024-06-18] MEDS: Ibuprofen 600 MG Tablet PO (08:53)
[2024-06-18 09:05] VITALS: BP 117/69; PULSE 70; RESP 16; TEMP 36.7; O2SAT 98
[2024-06-18] MEDS: Senna/Docusate Sodium 1 Tablet PO (11:09)
== END 2024-06-18 12:40 | disposition home or self-care (01) | DRG 785 ==
PROVIDERS: Admitting Provider Obstetrics & Gynecology; Referring Provider Obstetrics & Gynecology; Visit Provider Obstetrics & Gynecology
PROC: 10D00Z1 Extraction of Products of Conception, Low, Open Approach (ICD-10-PCS; CPT 59514; principal; 2024-06-17 07:00)
DX: O34.211 Maternal care for low transverse scar from previous cesarean delivery (principal); O69.2XX0 Labor and delivery complicated by other cord entanglement, with compression, not applicable or unspecified; Z30.2 Encounter for sterilization; Z37.0 Single live birth; Z3A.37 37 weeks gestation of pregnancy; O99.02 Anemia complicating childbirth
CPT/HCPCS: 59025; 59050; 85025; 85027; 85461; 86780; 86850; 86900; 86901; 88302; 90384; 99221; J7120; A4216; G0378; J2405; J2790; J2791